=== PATIENT | male | born 1965 | race Caucasian/White ===

== ENCOUNTER → 2024-05-11 07:50 | Outpatient (REF) | payer BC, SELFPAY | LOC: RCS 07:50 | PROVIDERS: ATTENDING PHYSICIAN Orthopaedic Surgery; FAMILY PHYSICIAN Internal Medicine | DX: Z01.818 Encounter for other preprocedural examination (principal) | CPT/HCPCS: 93005 ==

== ENCOUNTER → 2024-12-12 06:49 | Outpatient (REF) | payer BC, SELFPAY | LOC: MRI 3T 06:49 | PROVIDERS: ATTENDING PHYSICIAN Psychiatry & Neurology Neurology; FAMILY PHYSICIAN Internal Medicine | DX: R56.9 Unspecified convulsions (principal) | CPT/HCPCS: 70551 ==